=== PATIENT | female | born 1990 | race Caucasian/White ===

== ENCOUNTER 2017-07-25 09:09 | Emergency (ER) | payer OTHER ==
--- NOTE | 2017-07-25 09:55 | UC ---
Skin Complaint HPI - HPI Summary HPI Summary: 27 year old female presents with potential abscess in the groin. She has had this in the past many times Last year had I&D and negative for MRSA. No fevers or chills at this time. At this time has had new affected possible abscess in the groin that started last night. No discharge and some discomfort in that area. No new sexual partners. - History of Current Complaint Chief Complaint: UCSkin Time Seen by Provider: 07/25/17 09:41 Stated Complaint: SKIN COMPLAINT Hx Obtained From: Patient Hx Last Menstrual Period: 07/18/17 Onset/Duration: Gradual Onset Timing: Constant Aggravating: Nothing Alleviating: Nothing Associated Signs & Symptoms: Positive: Negative - Allergy/Home Medications Allergies/Adverse Reactions: Allergies Allergy/AdvReac Type Severity Reaction Status Date / Time No Known Allergies Allergy Verified 07/25/17 09:30 Home Medications: Home Medications Lactobacillus [Probiotic] 1 cap PO DAILY 07/25/17 [History Confirmed 07/25/17] Review of Systems Skin: Other - abscess groin All Other Systems Reviewed And Are Negative: Yes PMH/Surg Hx/FS Hx/Imm Hx Previously Healthy: Yes - Surgical History Surgical History: Yes Surgery Procedure, Year, and Place: Tonsilectomy - Family History Known Family History: Positive: Hypertension - neg for HTN - Social History Occupation: Employed Full-time Alcohol Use: Occasionally Substance Use Type: None Smoking Status (MU): Never Smoked Tobacco - Immunization History Most Recent Influenza Vaccination: Not the Season Physical Exam Triage Information Reviewed: Yes Appearance: Well-Appearing, No Pain Distress, Well-Nourished Vital Signs: Initial Vital Signs Temp 98.6 F 07/25/17 09:31 Pulse 78 07/25/17 09:31 Resp 16 07/25/17 09:31 BP 102/69 07/25/17 09:31 Pulse Ox 100 07/25/17 09:31 Vital Signs Reviewed: Yes Eye Exam: Normal ENT Exam: Normal Neck exam: Normal Neck: Positive: 1 Respiratory Exam: Normal Cardiovascular Exam: Normal Abdominal Exam: Normal Musculoskeletal Exam: Normal Neurological Exam: Normal Psychological Exam: Normal Skin Exam: Normal Skin: Positive: Other - in the groin , just superior to the pubic bone there is dime sized area of tenderness with minimal fluctuance and redness. no lymph node concerns. no vesicular lesions. accompanied by nurse ivette Course/Dx - Course Course Of Treatment: At this time not close to needing I&D. Of note patient states she has had abcess in the past in the same area -- ? sebaceous cyst -- refer to surgery, of note had culture last year and neg for MRSA so treat to cover strep at this time with keflex. RTO if any concerns for potential I&D,. - Differential Diagnoses - Skin Complaint Differential Diagnoses: Cellulitis, MRSA - Diagnoses Provider Diagnoses: abscess in the groin Discharge - Discharge Plan Condition: Good Disposition: HOME Prescriptions: Cephalexin CAP* [Keflex CAP*] 500 mg PO TID #30 cap Patient Education Materials: Abscess (ED), Warm Compress or Soak (ED) Referrals: Maria L Cowart MD [Primary Care Provider] - 3 Days Jeanne Nieto MD [Medical Doctor] - 2 Days (For potential Incision & drainage ) Additional Instructions: As we discussed please follow up with a general sugeon if your symptoms warrant for follow up and potential excision or incision and drainage
[2017-07-25 10:00] VITALS: BP 102/69
== END 2017-07-25 10:12 | disposition home or self-care (01) ==
LOC: UCCORT 09:09
DX: L02.214 Cutaneous abscess of groin (principal)
CPT/HCPCS: 99212; G0463

== ENCOUNTER 2017-10-05 15:46 | Emergency (ER) | payer OTHER ==
[2017-10-05 16:01] VITALS: BP 100/65
--- NOTE | 2017-10-05 16:15 | UC ---
Throat Pain/Nasal Luis Eduardo HPI - HPI Summary HPI Summary: P tc/o nasal congestion, sinus "fullness", PND and cough X 4 weeks. - History of Current Complaint Chief Complaint: UCGeneralIllness Stated Complaint: CHEST CONGESTION Time Seen by Provider: 10/05/17 15:57 Hx Obtained From: Patient Hx Last Menstrual Period: 09/11/2017 ?: No Onset/Duration: Gradual Onset, Lasting Weeks - 4, Still Present Severity: Mild Cough: Nonproductive Associated Signs & Symptoms: Positive: Sinus Discomfort Related History: Seasonal Allergies - Epiglottits Risk Factors Epiglottis Risk Factors: Negative - Allergies/Home Medications Allergies/Adverse Reactions: Allergies Allergy/AdvReac Type Severity Reaction Status Date / Time No Known Allergies Allergy Verified 10/05/17 16:02 PMH/Surg Hx/FS Hx/Imm Hx Previously Healthy: Yes - Surgical History Surgical History: Yes Surgery Procedure, Year, and Place: Tonsilectomy - Family History Known Family History: Positive: Hypertension - neg for HTN - Social History Occupation: Employed Full-time Lives: With Family Alcohol Use: None Substance Use Type: None Smoking Status (MU): Never Smoked Tobacco Have You Smoked in the Last Year: No - Immunization History Most Recent Influenza Vaccination: NOT CURRENT Review of Systems Constitutional: Fatigue Skin: Negative Eyes: Negative ENT: Sinus Congestion, Sinus Pain/Tenderness Respiratory: Cough Cardiovascular: Negative Gastrointestinal: Negative Genitourinary: Negative Motor: Negative Neurovascular: Negative Musculoskeletal: Negative Neurological: Headache Psychological: Negative Is Patient Immunocompromised?: No All Other Systems Reviewed And Are Negative: Yes Physical Exam Triage Information Reviewed: Yes Appearance: Ill-Appearing Vital Signs: Initial Vital Signs Temp 98.3 F 10/05/17 15:53 Pulse 78 10/05/17 15:53 Resp 18 10/05/17 15:53 BP 100/65 10/05/17 15:53 Pulse Ox 100 10/05/17 15:53 Vital Signs Reviewed: Yes Eye Exam: Normal ENT Exam: Other ENT: Positive: Nasal congestion, Sinus tenderness Dental Exam: Normal Neck exam: Normal Respiratory Exam: Normal Cardiovascular Exam: Normal Musculoskeletal Exam: Normal Neurological Exam: Normal Psychological Exam: Normal Skin Exam: Normal Throat Pain/Nasal Course/Dx - Differential Dx/Diagnosis Differential Diagnosis/HQI/PQRI: Sinusitis, URI Provider Diagnoses: sinusitis. PND. cough Discharge - Discharge Plan Condition: Stable Disposition: HOME Prescriptions: Amoxicillin PO (*) [Amoxicillin 875 MG (*)] 875 mg PO Q12H #20 tab Pseudoephedrine-Guaifenesin [Mucinex D 60-600 mg] 1 tab PO DAILY #10 tab Patient Education Materials: Sinusitis (ED) Referrals: Maria L Cowart MD [Primary Care Provider] - If Needed
== END 2017-10-05 16:23 | disposition home or self-care (01) ==
LOC: UCCORT 15:46
DX: J32.9 Chronic sinusitis, unspecified (principal); R05 Cough
CPT/HCPCS: 99212; G0463